=== PATIENT | male | born 1945 | race Caucasian/White ===

== ENCOUNTER 2018-11-21 09:33 | Emergency (ER) | payer MEDICARE ==
[2018-11-21] MEDS ORDERED: HYDROcodone/APAP 5-325MG 1 EACH TAB PO STA (09:51)
--- NOTE | 2018-11-21 10:27 | XR ---
EXAMINATION TYPE: XR lumbosacral spine min 4V DATE OF EXAM: 11/21/2018 COMPARISON: NONE HISTORY: 73-year-old male with pain after twisting injury TECHNIQUE: 5 views FINDINGS: Minimal anterior wedging T12 has a chronic appearance. There is some associated endplate spondylosis and mild degenerative disc disease adjacent at both T11-T12 and T12-L1. Additional minimal endplate s pondylosis within the lumbar spine. Hypertrophic facet arthropathy with grade 1 anterolisthesis at L4 -L5. Vertebral body heights otherwise maintained. No pars interarticularis defects seen. IMPRESSION: 1. Minimal anterior wedging of T12 likely chronic as there is adjacent degenerative disc disease at b oth T11-T12 and T12-L1. 2. Hypertrophic facet arthropathy mid to lower lumbar spine with grade 1 anterolisthesis at L4-L5.
--- NOTE | 2018-11-21 10:30 | ED ---
Back Pain HPI - General Chief Complaint: Back Pain/Injury Stated Complaint: low back pain Time Seen by Provider: 11/21/18 09:40 Source: patient, RN notes reviewed Mode of arrival: ambulatory Limitations: no limitations - History of Present Illness Initial Comments: 73-year-old male presents emergency Department with chief complaint of right low back pain. Patient states been bothersome or last few days. Patient states started when he reached forward. He denies any bowel bladder incontinence or retention He states he has some pain rates down his right leg. Patient states she's had some symptoms like this in the past but never to this extent. Patient denies any abdominal pain. Patient states that laying flat makes the pain go away. He has not followed up with his primary care physician for this. He did try some Robaxin for the symptoms and helps minimally. Patient states that is not taking any pain medication. - Related Data Home Medications Medication Instructions Recorded Confirmed Aspirin EC [Ecotrin Low Dose] 81 mg PO DAILY 11/21/18 11/21/18 Pravastatin Sodium [Pravachol] 20 mg PO DAILY 11/21/18 11/21/18 Previous Rx's Medication Instructions Recorded Hydrocodone/Acetaminophen [[place] 1 tab PO Q6HR PRN #12 tab 11/21/18 5-325] Ibuprofen [Motrin] 600 mg PO Q8HR PRN #30 tab 11/21/18 Methocarbamol [Robaxin] 500 mg PO TID PRN #15 tab 11/21/18 Allergies Allergy/AdvReac Type Severity Reaction Status Date / Time No Known Allergies Allergy Verified 11/21/18 10:07 Review of Systems ROS Statement: Those systems with pertinent positive or pertinent negative responses have been documented in the HPI. ROS Other: All systems not noted in ROS Statement are negative. Past Medical History Past Medical History: No Reported History History of Any Multi-Drug Resistant Organisms: None Reported Past Surgical History: No Surgical Hx Reported Additional Past Surgical History / Comment(s): ear surgery Past Psychological History: No Psychological Hx Reported Smoking Status: Never smoker Past Alcohol Use History: None Reported Past Drug Use History: None Reported General Exam Limitations: no limitations General appearance: alert, in no apparent distress Head exam: Present: atraumatic, normocephalic, normal inspection Neck exam: Present: normal inspection. Absent: tenderness, meningismus, lymphadenopathy Respiratory exam: Present: normal lung sounds bilaterally. Absent: respiratory distress, wheezes, rales, rhonchi, stridor Cardiovascular Exam: Present: regular rate, normal rhythm, normal heart sounds. Absent: systolic murmur, diastolic murmur, rubs, gallop, clicks GI/Abdominal exam: Present: soft, normal bowel sounds. Absent: distended, tenderness, guarding, rebound, rigid Extremities exam: Present: other (Lower extremity strength equal bilaterally, neurovascular intact equal pulses equal color equal warmth) Back exam: Present: normal inspection, full ROM (Pain with range of motion), tenderness (Right lower lumbar), muscle spasm, paraspinal tenderness, other ( Pain with right straight leg raise). Absent: CVA tenderness (R), CVA tenderness (L), vertebral tenderness Neurological exam: Present: alert, oriented X3, CN II-XII intact, reflexes normal. Absent: motor sensory deficit Skin exam: Present: warm, dry, intact, normal color. Absent: rash Course Vital Signs 11/21/18 09:36 Temperature 98.5 F Pulse Rate 72 Respiratory 16 Rate Blood Pressure 158/90 O2 Sat by Pulse 95 Oximetry Medical Decision Making - Medical Decision Making 73-year-old male presented for low back pain after reaching for her. Patient does have some degenerative changes including wedging of T12-L1 that this is not the area patient's reported pain this is chronic in nature. Patient does have some mild anterolisthesis of L4 and L5 may be causing some lumbar radiculopathy Symptoms. Patient has no red flag symptoms. Patient will be discharged with follow-up with Dr. Craig. Patient agrees to plan return parameters were discussed. Disposition Clinical Impression: Strain of lumbar region, Lumbar radiculopathy Disposition: HOME SELF-CARE Condition: Stable Instructions (If sedation given, give patient instructions): Acute Low Back Pain (ED) Additional Instructions: Please return to the Emergency Department if symptoms worsen or any other concerns. Prescriptions: Hydrocodone/Acetaminophen [[place] 5-325] 1 tab PO Q6HR PRN #12 tab PRN Reason: Pain Ibuprofen [Motrin] 600 mg PO Q8HR PRN #30 tab PRN Reason: Pain Methocarbamol [Robaxin] 500 mg PO TID PRN #15 tab PRN Reason: muscle spasms Is patient prescribed a controlled substance at d/c from ED?: No Referrals: Vicente Gill MD [Primary Care Provider] - 1-2 days Benjamin Craig DO [Doctor of Osteopathic Medicine] - 1-2 days Time of Disposition: 10:41
[2018-11-21] MEDS ORDERED: MORPHINE SULFATE 4 MG/ML SYRINGE IM STA (10:38)
[2018-11-21 10:53] VITALS: BP 162/92; PULSE 73; RESP 18; TEMP 97.1
== END 2018-11-21 10:52 | disposition home or self-care (01) ==
LOC: EC 09:33
DX: S39.012A Strain of muscle, fascia and tendon of lower back, initial encounter (principal); M54.16 Radiculopathy, lumbar region; M47.815 Spondylosis without myelopathy or radiculopathy, thoracolumbar region; Z79.82 Long term (current) use of aspirin; Z79.899 Other long term (current) drug therapy; X58.XXXA Exposure to other specified factors, initial encounter
CPT/HCPCS: 72110; 96372; 99283

== ENCOUNTER → 2018-12-19 | Outpatient (CLI) | payer MEDICARE ==
--- NOTE | 2018-12-20 07:03 | XR ---
EXAMINATION TYPE: XR Hip Bilateral Complete DATE OF EXAM: 12/19/2018 CLINICAL HISTORY: Right greater than left hip pain after lifting injury, osteoarthritis per order. TECHNIQUE: AP and frogleg views of the bilateral hips are obtained. COMPARISON: None. FINDINGS: There is no acute fracture/dislocation evident in either hip. Symmetric mild axial joint s pace loss in both hips is present with mild left-sided acetabular spurring. Left-sided pelvic phlebol iths are seen in the overlying soft tissue. Pubic symphysis is maintained. IMPRESSION: As above.
== END | disposition home or self-care (01) ==
LOC: RADXRMAIN 16:10
PROVIDERS: ATTEND Psychiatry & Neurology Neurology
DX: M25.551 Pain in right hip (principal)
CPT/HCPCS: 73521

== ENCOUNTER → 2019-01-03 | Outpatient (CLI) | payer MEDICARE ==
--- NOTE | 2019-01-03 14:31 | US ---
EXAMINATION TYPE: US carotid duplex BILAT DATE OF EXAM: 01/03/2019 COMPARISON: NONE CLINICAL HISTORY: I65.29 Occlusion and stenosis of unspecified. H/O endart in 2017 on the left side/ pt has no complaints at this time EXAM MEASUREMENTS: RIGHT: Peak Systolic Velocity (PSV) cm/sec ----- Right CCA: 80.8 ----- Right ICA: 79.9 ----- Right ECA: 131.8 ICA/CCA ratio: 1.0 RIGHT: End Diastole cm/sec ----- Right CCA: 25.0 ----- Right ICA: 27.6 ----- Right ECA: 17.1 LEFT: Peak Systolic Velocity (PSV) cm/sec ----- Left CCA: 89.7 ----- Left ICA: 76.4 ----- Left ECA: 135.0 ICA/CCA ratio: 0.9 LEFT: End Diastole cm/sec ----- Left CCA: 29.2 ----- Left ICA: 32.8 ----- Left ECA: 18.7 VERTEBRALS (direction of flow): Right Vertebral: Antegrade Left Vertebral: Antegrade Rhythm: Normal No significant stenosis seen Grayscale images show no significant plaque at carotid bulb level bilaterally. IMPRESSION: No hemodynamically significant stenosis seen in either internal carotid artery. Criteria for Assigning % of Stenosis / Diameter reduction (Estimation based on the indirect measurements of the internal carotid artery velocities (ICA PSV). 1. Normal (no stenosis)=ICA PSV < 125 cm/s: ratio < 2.0: ICA EDV<40 cm/s. 2. Less than 50% stenosis=ICA PSV < 125 cm/s: ratio < 2.0: ICA EDV<40 cm/s. 3. 50 to 69% stenosis=ICA PSV of 125 to 230 cm/s: ration 2.0 ? 4.0: ICA EDV 40-100 cm/s. 4. Greater than 70% stenosis to near occlusion= ICA PSV > 230 cm/s: ratio > 4.0: ICA EDV > 100 cm/s. 5. Near occlusion= ICA PSV velocities may be low or undetectable: variable ratio and ICA EDV. 6. Total occlusion=unable to detect flow.
== END ==
LOC: RADUSWWP 13:40
PROVIDERS: ATTEND Internal Medicine
DX: I65.29 Occlusion and stenosis of unspecified carotid artery (principal)
CPT/HCPCS: 93880

== ENCOUNTER 2020-06-13 23:08 | Emergency (ER) | payer MEDICARE ==
[2020-06-13 23:18] VITALS: BP 156/91; PULSE 68; RESP 16; TEMP 98.1
--- NOTE | 2020-06-13 23:52 | ED ---
ENT HPI - General Chief complaint: ENT Stated complaint: ENT Time Seen by Provider: 06/13/20 23:26 Source: patient Mode of arrival: ambulatory Limitations: no limitations - History of Present Illness Initial comments: Patient is 74-year-old male presenting to the emergency department with a chief complaint Q-tip in his ear. Patient states she typically in his ear the Q-tip before when about a nightly basis. Patient states today he believes that a Q- tip was left in his left ear because he checked a Q-tip after he left it in the pocket and noticed one end of it was missing. So there could be a questionable foreign body in the left ear reported to the patient. Patient states there is no pain or decreased hearing. States he does wear hearing aids. Denies any discharge from the region. - Related Data Home Medications Medication Instructions Recorded Confirmed Aspirin EC [Ecotrin Low Dose] 81 mg PO DAILY 11/21/18 11/21/18 Pravastatin Sodium [Pravachol] 20 mg PO DAILY 11/21/18 11/21/18 Previous Rx's Medication Instructions Recorded Hydrocodone/Acetaminophen [[place] 1 tab PO Q6HR PRN #12 tab 11/21/18 5-325] Ibuprofen [Motrin] 600 mg PO Q8HR PRN #30 tab 11/21/18 methocarbamoL [Robaxin] 500 mg PO TID PRN #15 tab 11/21/18 Allergies Allergy/AdvReac Type Severity Reaction Status Date / Time No Known Allergies Allergy Verified 06/13/20 23:18 Review of Systems ROS Statement: Those systems with pertinent positive or pertinent negative responses have been documented in the HPI. ROS Other: All systems not noted in ROS Statement are negative. Past Medical History Past Medical History: Hearing Disorder / Deafness, Hyperlipidemia History of Any Multi-Drug Resistant Organisms: None Reported Past Surgical History: No Surgical Hx Reported Additional Past Surgical History / Comment(s): ear surgery, carotid Past Psychological History: No Psychological Hx Reported Smoking Status: Never smoker Past Alcohol Use History: Rare Past Drug Use History: None Reported General Exam Limitations: no limitations General appearance: alert, in no apparent distress Head exam: Present: atraumatic, normocephalic, normal inspection Eye exam: Present: normal appearance, PERRL, EOMI Pupils: Present: normal accommodation ENT exam: Present: normal exam, normal oropharynx, mucous membranes moist, TM's normal bilaterally. Absent: normal external ear exam (No detectable foreign body in the left ear.) Neck exam: Present: normal inspection, full ROM. Absent: tenderness Respiratory exam: Present: normal lung sounds bilaterally. Absent: respiratory distress, wheezes, rales Cardiovascular Exam: Present: regular rate, normal rhythm, normal heart sounds Extremities exam: Present: normal inspection, full ROM. Absent: tenderness Back exam: Present: normal inspection, full ROM. Absent: tenderness Neurological exam: Present: alert, oriented X3 Psychiatric exam: Present: normal affect, normal mood Skin exam: Present: warm, dry, intact, normal color Course Vital Signs 06/13/20 06/14/20 23:15 00:08 Temperature 98.1 F 98.1 F Pulse Rate 68 68 Respiratory 16 16 Rate Blood Pressure 156/91 156/91 O2 Sat by Pulse 98 98 Oximetry Medical Decision Making - Medical Decision Making Patient is 74-year-old male presenting to emergency Department with a chief complaint of Q-tip in the left ear. On exam I could not find any foreign bodies in the left ear. Patient did have a stapedectomy procedure left ear from about 30 years ago which was evident on exam. No pain with pulling on the tragus. Patient advised to follow-up with an ENT specialist. Strict return prescribed as were thoroughly discussed the patient was understanding and agreeable. Case discussed with physician. Disposition Clinical Impression: Foreign body in left ear Disposition: HOME SELF-CARE Condition: Stable Instructions (If sedation given, give patient instructions): Ear Foreign Body (ED) Additional Instructions: Return to emergency department if symptoms worsen. Is patient prescribed a controlled substance at d/c from ED?: No Referrals: Vicente Gill MD [Primary Care Provider] - 1-2 days Artem Boyd MD [STAFF PHYSICIAN] - 1-2 days Time of Disposition: 23:54
== END 2020-06-14 00:11 | disposition home or self-care (01) ==
LOC: EC 23:08
DX: T16.2XXA Foreign body in left ear, initial encounter (principal); H91.90 Unspecified hearing loss, unspecified ear; E78.5 Hyperlipidemia, unspecified; Z79.82 Long term (current) use of aspirin; Z79.899 Other long term (current) drug therapy; Z98.890 Other specified postprocedural states; Z97.4 Presence of external hearing-aid; X58.XXXA Exposure to other specified factors, initial encounter
CPT/HCPCS: 99282